=== PATIENT | female | born 1955 | race Hispanic/Latino ===

== ENCOUNTER 2017-08-31 14:16 | Observation (INO) | payer MEDICAID ==
[~2017-08-31] VITALS: Ht 147.3 cm; Wt 70.6 kg
[2017-08-31] MEDS ORDERED: METHYLPREDNISOLONE SOD SUCC 40MG/ML 1ML ONE (15:02)
[2017-08-31] MEDS ORDERED: CEFEPIME HCL 1 GM VIAL ONE (15:02)
[2017-08-31] MEDS ORDERED: LEVOFLOXACIN 500 MG/D5W 100 ML 100 ML ONE (15:02)
[2017-08-31 15:28] LABS: EOSINOPHILS % (AUTO) 0.9 % (0.0-8.0); HEMATOCRIT 37.7 % (36-48); LYMPHOCYTES % (AUTO) 22.9 % (21.0-51.0); MEAN CORPUSCULAR HEMOGLOBIN 26.9 pg (27.0-33.0); MEAN CORPUSCULAR HGB CONC 33.3 g/dL (32.0-36.0); MEAN CORPUSCULAR VOLUME 80.8 fL (79-99); MONOCYTES % (AUTO) 4.3 % (3.0-13.0); NEUTROPHILS % (AUTO) 70.9 % (40.0-77.0); PLATELET COUNT (AUTO) 306 K/uL (130-400); RED BLOOD CELL COUNT(AUTO) 4.66 MIL/uL (4.00-5.50); RED CELL DISTRIBUTION WIDTH 17.5 % (11.0-15.5); WHITE BLOOD COUNT (AUTO) 14.7 K/uL (4.8-10.8)
[2017-08-31 15:35] LABS: CREATININE 0.7 mg/dL (0.5-1.5); POTASSIUM 3.7 mmol/L (3.5-5.1)
[2017-08-31 15:39] LABS: ALBUMIN 3.2 g/dL (3.5-5.0); BILIRUBIN,DIRECT 0.1 mg/dL (0.0-0.3); BILIRUBIN,TOTAL 0.2 mg/dL (0.2-1.0); TOTAL PROTEIN, SERUM 6.8 g/dL (6.0-8.3)
[2017-08-31] MEDS ORDERED: IPRATROPIUM/ALBUTEROL SULFATE 3 ML SOLUTION IH ONE ×2 (18:23→23:19)
[2017-08-31] MEDS ORDERED: ACETYLCYSTEINE 20% 200MG/ML 4ML VIAL ONE ×2 (18:23→23:19)
[2017-08-31] MEDS ORDERED: SODIUM CHLORIDE 3% FOR INHALATION 4 ML/AMP VIAL.NEB IH ONE (19:38)
[2017-08-31] MEDS ORDERED: 1/2 NORMAL SALINE 1,000 ML IV SCH (20:00)
[2017-08-31] MEDS ORDERED: ENOXAPARIN SODIUM 40 MG/0.4 ML SYRINGE SQ SCH (20:15)
[2017-08-31] MEDS ORDERED: GUAIFENESIN SUGAR-FREE 100 MG/5 ML UDCUP PO PRN (20:15)
[2017-08-31] MEDS ORDERED: CLONIDINE HCL 0.1 MG TABLET PO PRN (20:15)
[2017-08-31] MEDS ORDERED: FAMOTIDINE 20MG TAB 20 MG TAB PO SCH (21:00)
[2017-08-31] MEDS ORDERED: HUMALOG PO SS1 SQ SCH (21:00)
[2017-08-31] MEDS ORDERED: INSULIN HUMULIN R 100 UNIT/ML 3ML ONE (22:06)
[2017-08-31] MEDS: IPRATROPIUM/ALBUTEROL SULFATE 3 ML SOLUTION IH SCH (23:32)
[2017-08-31] MEDS: ACETYLCYSTEINE 20% 200MG/ML 4ML VIAL IH SCH (23:32)
[2017-08-31 23:47] VITALS: BP 146/87
[2017-09-01] MEDS ORDERED: CEFEPIME HCL 1 GM VIAL ONE (02:26)
[2017-09-01] MEDS ORDERED: METHYLPREDNISOLONE SOD SUCC 125MG/2ML VIAL ONE (02:43)
[2017-09-01] MEDS ORDERED: METHYLPREDNISOLONE SOD SUCC 125MG/2ML VIAL IVP SCH (03:00)
[2017-09-01 04:00] VITALS: BP 114/78
[2017-09-01] MEDS ORDERED: CEFEPIME HCL 1 GM VIAL IVP SCH (04:00)
[2017-09-01 04:58] LABS: HEMATOCRIT 35.6 % (36-48); MEAN CORPUSCULAR HEMOGLOBIN 27.3 pg (27.0-33.0); MEAN CORPUSCULAR HGB CONC 33.8 g/dL (32.0-36.0); MEAN CORPUSCULAR VOLUME 80.9 fL (79-99); NUCLEATED RED BLOOD CELLS 0.1 % (0.0-0.19); PLATELET COUNT (AUTO) 266 K/uL (130-400); RED CELL DISTRIBUTION WIDTH 17.4 % (11.0-15.5); WHITE BLOOD COUNT (AUTO) 12.6 K/uL (4.8-10.8)
[2017-09-01 05:35] LABS: ALBUMIN 2.9 g/dL (3.5-5.0); BILIRUBIN,DIRECT 0.1 mg/dL (0.0-0.3); BILIRUBIN,TOTAL 0.4 mg/dL (0.2-1.0); CREATININE 0.7 mg/dL (0.5-1.5); POTASSIUM 4.1 mmol/L (3.5-5.1); TOTAL PROTEIN, SERUM 6.4 g/dL (6.0-8.3)
[2017-09-01] MEDS ORDERED: ACETYLCYSTEINE 10% 100MG/ML 4ML VIAL ONE (07:04)
[2017-09-01] MEDS ORDERED: IPRATROPIUM/ALBUTEROL SULFATE 3 ML SOLUTION IH ONE (07:04)
[2017-09-01] MEDS: IPRATROPIUM/ALBUTEROL SULFATE 3 ML SOLUTION IH SCH (07:07)
[2017-09-01] MEDS: ACETYLCYSTEINE 20% 200MG/ML 4ML VIAL IH SCH (07:07)
[2017-09-01] MEDS ORDERED: INSULIN LISPRO 100 UNIT/ML 3ML SQ SCH (07:30)
[2017-09-01 08:00] VITALS: BP 126/94
[2017-09-01] MEDS ORDERED: LEVOFLOXACIN 500 MG/D5W 100 ML 100 ML IV SCH (15:00)
== END 2017-09-01 09:30 | disposition left against medical advice (07) ==
LOC: EDH 14:16 → 3AH 14:22 → EDH 20:22
PROVIDERS: ADMIT Internal Medicine; ATTEND Internal Medicine
DX: J44.1 Chronic obstructive pulmonary disease with (acute) exacerbation (principal); E78.5 Hyperlipidemia, unspecified; E11.9 Type 2 diabetes mellitus without complications; I10 Essential (primary) hypertension; G89.29 Other chronic pain; M54.9 Dorsalgia, unspecified; F17.210 Nicotine dependence, cigarettes, uncomplicated
CPT/HCPCS: 36415 ×2; 71046; 80048 ×2; 80076 ×2; 82948 ×2; 85025; 85027; 94640 ×5; 94664; 96374; 96375; 99285; A4218; G0378 ×19; J0692 ×2; J1815; J1956; J2920; J2930; J7608 ×3

== ENCOUNTER 2018-04-11 05:43 | Day surgery (SDC) | payer MEDICAID ==
[2018-04-07 11:40] VITALS: BP 170/65
[2018-04-07 11:48] LABS: BASOPHILS % (AUTO) 1.3 % (0.0-5.0); EOSINOPHILS % (AUTO) 1.5 % (0.0-8.0); HEMATOCRIT 38.7 % (36-48); LYMPHOCYTES % (AUTO) 24.2 % (21.0-51.0); MEAN CORPUSCULAR HEMOGLOBIN 26.2 pg (27.0-33.0); MEAN CORPUSCULAR HGB CONC 32.5 g/dL (32.0-36.0); MEAN CORPUSCULAR VOLUME 80.7 fL (79-99); PLATELET COUNT (AUTO) 312 K/uL (130-400); RED CELL DISTRIBUTION WIDTH 16.6 % (11.0-15.5); WHITE BLOOD COUNT (AUTO) 12.3 K/uL (4.8-10.8)
[2018-04-07 11:52] LABS: APPEARANCE,URINE Clear (CLEAR); BILIRUBIN,URINE Negative (NEGATIVE); COLOR,URINE Yellow (YELLOW); GLUCOSE, URINE (UA) Negative (NEGATIVE); KETONES,URINE Negative (NEGATIVE); LEUKOCYTE ESTERASE ,URINE Negative (NEGATIVE); NITRATE,URINE Negative (NEGATIVE); OCCULT BLOOD,URINE Negative (NEGATIVE); PROTEIN,URINE Negative (NEGATIVE); UROBILINOGEN,URINE 0.2 mg/dL (0.2-1.0)
[2018-04-07 11:55] LABS: CREATININE 0.6 mg/dL (0.5-1.5); POTASSIUM 3.7 mmol/L (3.5-5.1)
[2018-04-07 12:03] LABS: INR 0.91 (0.85-1.15); PARTIAL THROMBOPLASTIN TIME 27.5 SEC (26.3-35.5); PROTHROMBIN TIME 9.6 SEC (9.6-11.6)
[2018-04-11] VITALS (10 sets, daily range): BP systolic 107–134; BP diastolic 41–68
[~2018-04-11] VITALS: Ht 149.9 cm; Wt 71.5 kg
[2018-04-11] MEDS ORDERED: SODIUM CHLORIDE 0.9% 1000ML 1,000 ML IV ONE (06:28)
[2018-04-11] MEDS ORDERED: TOPI25TA48 PO (07:21)
[2018-04-11] MEDS ORDERED: PRAV10TA39 PO (07:21)
[2018-04-11] MEDS ORDERED: ESOM40CA PO (07:21)
[2018-04-11] MEDS ORDERED: DULO60CA63 PO (07:21)
[2018-04-11] MEDS ORDERED: GLYB-228 PO (07:21)
[2018-04-11] MEDS ORDERED: LISI-617 PO (07:21)
[2018-04-11] MEDS ORDERED: ROSU20TA30 PO (07:21)
[2018-04-11] MEDS ORDERED: TRAM50TA4 PO (07:21)
[2018-04-11] MEDS ORDERED: ASTHMA INHALER IH (07:27)
[2018-04-11] MEDS ORDERED: LIDOCAINE HCL-MPF 2% 5ML VIAL ONE (09:31)
[2018-04-11] MEDS ORDERED: IOHEXOL-350 50ML VIAL IV ONE ×2 (09:31)
[2018-04-11] MEDS ORDERED: NITROGLYCERIN 5 MG/ML 10 ML VIAL IV ONE (09:31)
[2018-04-11] MEDS ORDERED: IOHEXOL 350 MG/ML 100ML INFUS..BTL IV ONE ×2 (09:32)
[2018-04-11] MEDS ORDERED: MIDAZOLAM HCL 1 MG/ML 2ML VIAL ONE (10:10)
[2018-04-11] MEDS ORDERED: SODIUM CHLORIDE 0.9% 1000ML 1,000 ML IV SCH (10:36)
[2018-04-11] MEDS ORDERED: GLUCAGON 1MG KIT 1 MG ML IM PRN (10:45)
[2018-04-11] MEDS ORDERED: DEXTROSE 50%-WATER 50 ML DISP.SYRIN IV PRN (10:45)
== END 2018-04-11 15:31 | disposition home or self-care (01) ==
LOC: DAH 05:43 → SUH 05:43
PROVIDERS: ATTEND Internal Medicine Cardiovascular Disease
DX: I25.10 Atherosclerotic heart disease of native coronary artery without angina pectoris (principal); I10 Essential (primary) hypertension; E78.2 Mixed hyperlipidemia; E11.9 Type 2 diabetes mellitus without complications; F32.9 Major depressive disorder, single episode, unspecified; G47.33 Obstructive sleep apnea (adult) (pediatric); K21.9 Gastro-esophageal reflux disease without esophagitis; J45.909 Unspecified asthma, uncomplicated; Z79.899 Other long term (current) drug therapy; Z86.73 Personal history of transient ischemic attack (TIA), and cerebral infarction without residual deficits; Z90.710 Acquired absence of both cervix and uterus; Z98.890 Other specified postprocedural states; Z82.49 Family history of ischemic heart disease and other diseases of the circulatory system
CPT/HCPCS: 36415; 71045 ×2; 80048; 81003; 82948 ×2; 85025; 85610; 85730; 93005; 93458; 99156; 99157; A4606; C1760; C1894; J1644; J2250; J3490 ×2; J7030; Q9965; Q9967 ×2

== ENCOUNTER → 2018-06-01 | Outpatient (CLI) | payer MEDICAID ==
[~2018-06-01] MED LIST: ASTHMA INHALER IH; DULO60CA63 PO; ESOM40CA PO; GLYB-228 PO; LISI-617 PO; ROSU20TA30 PO; TOPI25TA48 PO; TRAM50TA4 PO
== END | disposition home or self-care (01) ==
LOC: RAH 12:23
PROVIDERS: ATTEND Internal Medicine
DX: G44.89 Other headache syndrome (principal)
CPT/HCPCS: 70450